=== PATIENT | female | born 1990 | race Caucasian/White ===

== ENCOUNTER 2021-12-03 08:58 | Observation (INO) | payer MEDICAID ==
[~2021-12-03] VITALS: Ht 162.6 cm; Wt 82.1 kg
[2021-12-03 10:15] LABS: CLARITY URINE CLEAR (CLEAR); COLOR URINE YELLOW (YELLOW); KETONES URINE NEGATIVE (NEGATIVE); LEUKOCYTE ESTERASE URINE 3+ (NEGATIVE); NITRITE URINE NEGATIVE (NEGATIVE); OCCULT BLOOD URINE 1+ (NEGATIVE); PROTEIN URINE NEGATIVE (NEGATIVE); SPECIFIC GRAVITY URINE 1.006 (1.005-1.030); UROBILINOGEN URINE 0.2 E.U./dL (0.2-1.0)
[2021-12-03] MEDS ORDERED: CEFAZOLIN 2,000 MG in DEXT 5% WATER 100 ML IV ONE (12:00)
[2021-12-03] MEDS ORDERED: LACTATED RINGERS 1,000 ML IV ONE (12:00)
[2021-12-12] MEDS ORDERED: PREN-176 PO (03:54)
[2021-12-12] MEDS ORDERED: FERR-71 PO (03:54)
== END 2021-12-03 14:10 | disposition home or self-care (01) ==
LOC: 8 EST LDRP 08:58
PROVIDERS: ADMIT Obstetrics & Gynecology; ATTEND Obstetrics & Gynecology
DX: O46.93 Antepartum hemorrhage, unspecified, third trimester (principal); O62.9 Abnormality of forces of labor, unspecified; Z3A.35 35 weeks gestation of pregnancy
CPT/HCPCS: 59025; 76805; 76817; 76818; 81003; 96361; 96365; G0378; J0690; J7060; 96360; 99281

== ENCOUNTER 2021-12-19 15:48 | Inpatient (IN) | payer MEDICAID ==
[~2021-12-19] VITALS: Ht 160 cm; Wt 74.0 kg
[~2021-12-19 15:48] MED LIST: FERR-71 PO; IBUP-2030 PO; PREN-176 PO
[2021-12-19 16:45] LABS: BASOPHILS % 0.7 % (0.0-2.0); EOSINOPHILS % 0.6 % (0.0-5.0); HEMATOCRIT. 37.3 % (36.0-48.0); HEMOGLOBIN. 12.2 g/dL (12.0-16.0); MEAN CORPUSCULAR VOLUME 88.5 fL (81.0-99.0); MEAN PLATELET VOLUME 9.1 fl (7.4-10.4); NEUTROPHILS % 82.7 % (40.0-76.0); PLATELET 521 x1000/uL (130-400); RED BLOOD CELL COUNT 4.21 mill/uL (4.2-5.4); RED CELL DISTRIBUTION WIDTH 14.6 % (11.6-14.6)
[2021-12-19 16:49] LABS: CHLORIDE 103 mEq/L (98-107)
[2021-12-19 16:52] LABS: INR 1.1; PROTHROMBIN TIME 11.4 sec (9.6-11.0)
[2021-12-19] MEDS ORDERED: KCL 10MEQ/50ML PREMIX 50 ML IV ONE (18:45)
[2021-12-19] MEDS ORDERED: TRANEXAMIC ACID 1,000 MG/10 ML IV ONE (21:00)
[2021-12-19] MEDS ORDERED: METHYLERGONOVINE MALEATE 0.2 MG/ML IM ONE (21:00)
[2021-12-20 08:45] VITALS: BP 113/77
[2021-12-20 09:00] VITALS: BP 113/77
[2021-12-20 12:00] VITALS: BP 106/73
[2021-12-20] MEDS ORDERED: MAGNESIUM/ALUMINUM HYDROXIDE/SIMETHICONE 30ML UDC PO PRN (15:15)
[2021-12-20] MEDS ORDERED: ACETAMINOPHEN 650MG SUPP PR PRN (15:15)
[2021-12-20] MEDS ORDERED: DOCUSATE SODIUM 100MG CAPSULE PO PRN (15:15)
[2021-12-20] MEDS ORDERED: PIPERACILLIN/TAZ 3.375G PREMIX 50 ML IV SCH (15:15)
[2021-12-20] MEDS ORDERED: VANCOMYCIN 1G PREMIX 200 ML IV SCH (15:15)
[2021-12-20] MEDS ORDERED: LORAZEPAM 0.5MG TABLET PO PRN (15:15)
[2021-12-20] MEDS ORDERED: DIPHENHYDRAMINE 50MG/ML VIAL IV PRN (15:15)
[2021-12-20] MEDS ORDERED: ACETAMINOPHEN 325MG TABLET PO PRN ×2 (15:15)
[2021-12-20] MEDS ORDERED: NA PHOS,M-B/NA PHOS,DI-BA ENEMA 118ML PR PRN (15:15)
[2021-12-20] MEDS ORDERED: ONDANSETRON HCL 4MG/2ML INJ IV PRN (15:15)
[2021-12-20 16:00] VITALS: BP 112/75
[2021-12-20] MEDS: DEXT 5%/0.45% NACL 1000ML 1,000 ML IV SCH ×2 (17:44→23:26)
[2021-12-20] MEDS: PIPERACILLIN/TAZOBACTAM 3.375G in DEXT 5% WATER 50ML IV SCH ×2 (17:44→23:22)
[2021-12-20] MEDS ORDERED: VANCOMYCIN 1500MG in DEXTROSE 5% WATER 250ML IV NR (18:00)
[2021-12-20 20:00] VITALS: BP 113/69
[2021-12-21] VITALS (7 sets, daily range): BP systolic 118–135; BP diastolic 71–85
[2021-12-21] MEDS ORDERED: VANCOMYCIN 750MG PREMIX 150 ML IV SCH ×2 (02:00→13:00)
[2021-12-21] MEDS: PIPERACILLIN/TAZOBACTAM 3.375G in DEXT 5% WATER 50ML IV SCH ×2 (05:39→15:11)
[2021-12-21] MEDS: DEXT 5%/0.45% NACL 1000ML 1,000 ML IV SCH ×2 (08:00→16:38)
[2021-12-21 10:09] LABS: BASOPHILS % 0.6 % (0.0-2.0); HEMATOCRIT. 28.8 % (36.0-48.0); HEMOGLOBIN. 9.5 g/dL (12.0-16.0); LYMPHOCYTES % 13.1 % (20.0-50.0); MEAN CORPUSCULAR HEMOGLOBIN 28.8 pg (28.0-32.0); MEAN CORPUSCULAR VOLUME 87.1 fL (81.0-99.0); MEAN PLATELET VOLUME 8.5 fl (7.4-10.4); NEUTROPHILS % 80.3 % (40.0-76.0); PLATELET 263 x1000/uL (130-400); RED CELL DISTRIBUTION WIDTH 14.9 % (11.6-14.6)
[2021-12-21 10:20] LABS: CHLORIDE 107 mEq/L (98-107)
== END 2021-12-21 22:45 | disposition home or self-care (01) | DRG 561 ==
LOC: ER 15:48 → MICUSO 12-20 04:31 → 6EST 12-20 09:15
PROVIDERS: ADMIT Obstetrics & Gynecology; ATTEND Obstetrics & Gynecology
DX: O86.12 Endometritis following delivery (principal); D72.829 Elevated white blood cell count, unspecified; Z79.899 Other long term (current) drug therapy
CPT/HCPCS: 36415; 76830; 76856; 80053; 85025; 86850; 86900; 99285; C1893; J2210; J2543; J3370; J3480; J7060